=== PATIENT | male | born 1990 | race Caucasian/White ===

== ENCOUNTER 2016-11-14 17:07 | Emergency (ER) | payer MEDICAID, OTHER ==
[2016-11-14 17:21] VITALS: BP 130/83; PULSE 70; RESP 16; TEMP 98.7; O2SAT 100
--- NOTE | 2016-11-14 17:51 | C.PDOC ---
History Of Present Illness Patient is a 25 y/o male who presents to the ED for suture removal on bilateral legs. Wound is completely healed since sutures on September 22, 2016. Patient denies any complaints at this time. Time Seen by Provider: 11/14/16 17:24 Chief Complaint (Nursing): Suture/Staple Removal History Per: Patient History/Exam Limitations: no limitations Recent travel outside of the [place]: No Past Medical History Reviewed: Historical Data, Nursing Documentation, Vital Signs Vital Signs: Last Vital Signs Temp 98.7 F 11/14/16 17:19 Pulse 70 11/14/16 17:19 Resp 16 11/14/16 17:19 BP 130/83 11/14/16 17:19 Pulse Ox 100 11/14/16 18:20 - Medical History PMH: No Chronic Diseases Surgical History: No Surg Hx Family History: States: Unknown Family Hx - Social History Hx Alcohol Use: No Hx Substance Use: Yes - Immunization History Hx Tetanus Toxoid Vaccination: Yes Hx Influenza Vaccination: No Hx Pneumococcal Vaccination: No Review Of Systems Except As Marked, All Systems Reviewed And Found Negative. Physical Exam - Physical Exam Appears: Well, Non-toxic, Toxic Skin: Normal Color, Warm, Dry Head: Atraumatic, Normacephalic Eye(s): bilateral: Normal Inspection Oral Mucosa: Moist Extremity: No Tenderness, No Swelling, Other (healed sutured wounds to bilateral lower legs. ) Pulses: Left Dorsalis Pedis: Normal, Right Dorsalis Pedis: Normal Neurological/Psych: Oriented x3, Normal Speech, Normal Motor, Normal Sensation Gait: Steady ED Course And Treatment O2 Sat by Pulse Oximetry: 100 (Room air) Pulse Ox Interpretation: Normal Medical Decision Making Medical Decision Making: Progress: sutures removed by BALWINDER Marquez without difficulty. Patient was discharged home. Disposition - Disposition Referrals: [facility] [Outside] Disposition: HOME/ ROUTINE Disposition Time: 17:51 Condition: GOOD Additional Instructions: Return if worsened. Instructions: Stitches Removal (ED) Forms: [facility] (Kiswahili) - Clinical Impression Clinical Impression: Removal of suture - Scribe Statement The provider has reviewed the documentation as recorded by the Scribe Lanie Maciel All medical record entries made by the Scribe were at my direction and personally dictated by me. I have reviewed the chart and agree that the record accurately reflects my personal performance of the history, physical exam, medical decision making, and the department course for this patient. I have also personally directed, reviewed, and agree with the discharge instructions and disposition.
== END 2016-11-14 18:00 | disposition home or self-care (01) ==
LOC: C.ER 17:07
DX: Z48.02 Encounter for removal of sutures (principal)